=== PATIENT | female | born 1990 | race American Indian/Alaskan Native ===

== ENCOUNTER 2019-06-12 04:05 | Inpatient (IN) | payer MEDICAID ==
[2019-06-12] MEDS ORDERED: TERBUTALINE 1 MG/1 ML INJ IVP PRN (04:28)
[2019-06-12] MEDS ORDERED: AMPICILLIN/NS 2 GM/100 ML 2 GM/100 ML BAG IV ONE (04:28)
[2019-06-12] MEDS ORDERED: MINERAL OIL 30 ML ORAL LIQD PO PRN (04:28)
[2019-06-12] MEDS ORDERED: ePHEDrine SULFATE 50 MG/1 ML INJ IV PRN (04:28)
[2019-06-12] MEDS ORDERED: TERBUTALINE 1 MG/1 ML INJ SUB-Q PRN (04:28)
[2019-06-12] MEDS ORDERED: LIDOCAINE (2%) 20 MG/1 ML VIAL 20 ML MDV INFILTRATI ONE (04:28)
[2019-06-12 04:41] LABS: Hematocrit 29.6 % (30.3-42.9); Hemoglobin 9.2 gm/dl (10.1-14.3); Mean Corpuscular HGB Conc 31 % (30-34); Platelet Count 438 K/mm3 (140-440); Red Blood Count 4.25 M/mm3 (3.65-5.03); Red Cell Distribution Width 19.5 % (13.2-15.2)
[2019-06-12] MEDS ORDERED: OXYTOCIN 20 UNIT/1000ML DRIP 20,000 MILLIUNITS/1,000 ML BAG IV ONE (04:43)
[2019-06-12] MEDS ORDERED: OXYTOCIN 10 UNIT/1 ML INJ ONE (04:43)
[2019-06-12] MEDS ORDERED: OXYTOCIN 20 UNIT/1000ML DRIP 20 UNITS/1,000 ML BAG IV SCH (05:00)
[2019-06-12] MEDS ORDERED: LACTATED RINGERS 1,000 ML IV SCH (05:00)
[2019-06-12 05:21] LABS: Mean Corpuscular Volume 70 fl (79-97)
--- NOTE | 2019-06-12 05:30 | History and Physical Report ---
History of Present Illness Date of examination: 06/12/19 Date of admission: 06/12/19 04:09 Chief complaint: I'm in labor History of present illness: Pt is a 29 year old L4 who presents in active labor with srom and light meconium at 39.6 weeks with EDC 06/13/19. Patient was seen just recently at [facility] after moving from [place] where she did receive some care. Pt did have all of her labs with her. Per the documents, her course was unremarkable. Her GBS is positive. Past History Past Medical History: blood transfusion Past Surgical History: [employer]/uterine surgery Family/Genetic History: none Social history: single - Obstetrical History Expected Date of Delivery: 06/13/19 Actual Gestation: 39 Week(s) 6 Day(s) : 7 Para: 4 Hx # Term Pregnancies: 4 Spontaneous Abortions: 2 Number of Living Children: 4 Medications and Allergies Allergies Allergy/AdvReac Type Severity Reaction Status Date / Time No Known Allergies Allergy Unverified 06/12/19 04:28 Active Meds: Active Medications Acetaminophen/Hydrocodone Bitart ([place] 5/325) 2 each PO Q6H PRN PRN Reason: Pain, Moderate (4-6) Ephedrine Sulfate (Ephedrine Sulfate) 10 mg IV Q2M PRN PRN Reason: Hypotension Oxytocin/Sodium Chloride (Pitocin/Ns 20 Unit/1000ml Drip) 20 units in 1,000 mls @ 125 mls/hr IV DIRECT LANDY Lactated Ringer's (Lactated Ringers) 1,000 mls @ 125 mls/hr IV DIRECT LANDY Ampicillin Sodium (Ampicillin/Ns 2 Gm/100 Ml) 2 gm in 100 mls @ 100 mls/hr IV ONCE ONE; Protocol Stop: 06/12/19 05:27 Ampicillin Sodium (Ampicillin/Ns 1 Gm/50 Ml) 1 gm in 50 mls @ 100 mls/hr IV Q4HR LANDY; Protocol Mineral Oil (Mineral Oil) 30 ml PO QHS PRN PRN Reason: Constipation Terbutaline Sulfate (Brethine) 0.25 mg SUB-Q ONCE PRN PRN Reason: Hyperstimulation/Hypertonicity Terbutaline Sulfate (Brethine) 0.25 mg IVP ONCE PRN PRN Reason: Hyperstimulation/Hypertonicity Review of Systems All systems: negative Constitutional: weight gain Gastrointestinal: abdominal pain Genitourinary: contractions Rectal Exam: deferred Integumentary: deferred - Vital Signs Vital signs: Vital Signs Pulse Pulse Ox 95 H 100 06/12/19 04:28 06/12/19 04:28 Temp Pulse Resp BP Pulse Ox 97.3 F L 88 16 116/54 100 06/12/19 04:30 06/12/19 05:23 06/12/19 04:30 06/12/19 05:01 06/12/19 05:23 - Physical Exam Breasts: Cardiovascular: Regular rate, Normal S1, Normal S2 Lungs: Positive: Clear to auscultation, Normal air movement Abdomen: Positive: normal appearance, soft, normal bowel sounds. Negative: distention, tenderness Genitourinary (Female): Positive: normal external genitalia, normal perenium Vulva: both: normal Vagina: Positive: normal moisture. Negative: discharge Cervix: Negative: lesion, discharge Uterus: Positive: normal size, normal contour Adnexa: both: normal Anus/Rectum: Positive: normal perianal skin, heme negative. Negative: rectal mass, hemorrhoids Extremities: Deep Tendon Reflex Grade: Normal +2 - Obstetrical FHR: auscultation normal Cervical Dilatation: 5 Cervical Effacement Percentage: 80 station: -2 Uterine Contraction Pattern: Regular Uterine Tone Measurement Phase: Contraction Uterine Contraction Intensity: Moderate Results Result Diagrams: 06/12/19 04:00 Abnormal lab results 06/12/19 Range/Units 04:00 WBC 11.3 H (4.5-11.0) K/mm3 Hgb 9.2 L (10.1-14.3) gm/dl Hct 29.6 L (30.3-42.9) % MCV 70 L (79-97) fl MCH 22 L (28-32) pg RDW 19.5 H (13.2-15.2) % All other labs normal. Assessment and Plan IUP at 39.6 in active labor. Admit to L&D. Will try to treat for GBS proplylaxis. Anticipate .
--- NOTE | 2019-06-12 05:40 | Procedure Note ---
OB Delivery Note - Delivery Date of Delivery: 06/12/19 Surgeon: DARIO LOPES Estimated blood loss: 200cc - Vaginal Delivery presentation: vertex Delivery position: OA Intrapartum events: precipitous labor- <3hr Delivery induction: none Delivery monitor: external FHT, external uterine Route of delivery: Delivery placenta: spontaneous Delivery cord: 3 umbilical vessels Episiotomy: none Delivery laceration: none Anesthesia: none Delivery comments: Viable female delivered precipitously over intact perineum. Weight 2129 grams, 6 pounds 7 ounces. at 0449. Placenta delivered spontaneously and intact with 3vc. No lacerations. Excellent hemostasis. pt tolerated procedure well. - Infant A at 1 minute: 8 at 5 minutes: 9 Gender: Female (2129grams)
[2019-06-12] MEDS ORDERED: AMPICILLIN/NS 1 GM/50 ML 1 GM/50 ML BAG IV SCH (08:29)
[2019-06-12] MEDS ORDERED: ACETAMINOPHEN 325 MG TAB PO PRN (08:30)
[2019-06-12] MEDS ORDERED: diphenhydrAMINE 25 MG CAP PO PRN (08:30)
[2019-06-12] MEDS ORDERED: BENZOCAINE/MENTHOL 20/0.5% TOP SPRAY 56 GM TP PRN (08:30)
[2019-06-12] MEDS ORDERED: LANOLIN/ZINC/DIMETHICONE (LANSINOH) 7 GM TP PRN (08:30)
[2019-06-12] MEDS ORDERED: ONDANSETRON 4 MG/2 ML INJ IV PRN (08:30)
[2019-06-12] MEDS ORDERED: PROMETHAZINE 25 MG TAB PO PRN (08:30)
[2019-06-12] MEDS ORDERED: PROMETHAZINE 25 MG RECT SUPP PR PRN (08:30)
[2019-06-12] MEDS ORDERED: WITCH HAZEL/ GLYCERIN PAD TP PRN (08:30)
[2019-06-12] MEDS: HYDROcodone/ACETAMINOPHEN 5-325 MG TAB PO PRN (09:10)
[2019-06-12] MEDS: PRENATAL VIT27-FE FUMARATE-FOLIC ACID VIT TAB PO SCH (10:00)
[2019-06-12] MEDS: DOCUSATE SODIUM 100 MG CAP PO SCH ×2 (10:00→22:03)
[2019-06-12] MEDS: IBUPROFEN 600 MG TAB PO SCH ×2 (13:10→22:03)
[2019-06-12] MEDS ORDERED: MAGNESIUM HYDROXIDE (MOM) ORAL LIQD UDC PO PRN (22:00)
[2019-06-13] MEDS: IBUPROFEN 600 MG TAB PO SCH ×3 (03:15→16:53)
[2019-06-13 05:06] LABS: Hematocrit 22.6 % (30.3-42.9); Hemoglobin 7.1 gm/dl (10.1-14.3)
[2019-06-13] MEDS: HYDROcodone/ACETAMINOPHEN 5-325 MG TAB PO PRN ×2 (06:05→21:18)
[2019-06-13] MEDS: PRENATAL VIT27-FE FUMARATE-FOLIC ACID VIT TAB PO SCH (09:20)
[2019-06-13] MEDS: DOCUSATE SODIUM 100 MG CAP PO SCH ×2 (09:20→21:19)
--- NOTE | 2019-06-13 12:33 | Progress Note ---
Assessment and Plan PPD 1 s/p . Doing well. Plan for discharge on tomorrow Subjective - Subjective Date of service: 06/13/19 Interval history: POD 1 s/p precipitous . Pt was GBS positive and needs to stay 48 hours for observation. She has no complaints. Patient reports: appetite normal, voiding normally, pain well controlled : doing well Objective - Vital Signs Latest vital signs: Vital Signs Temp Pulse Resp BP BP Pulse Ox 06/13/19 08:00 97.5 F L 65 18 124/63 98 06/13/19 05:12 97.8 F 59 L 20 133/95 100 06/13/19 00:10 97.8 F 59 L 20 133/95 100 06/12/19 19:12 75 132/85 06/12/19 16:35 98.2 F 63 18 142/90 06/12/19 13:20 97.9 F 65 18 121/63 Intake and Output 06/12/19 06/13/19 06/13/19 22:59 06:59 14:59 Intake Total 480 480 Balance 480 480 Intake: Oral 480 480 Other: Total, Intake Amount 240 240 # Voids Void 1 1 - Exam Breasts: Present: deferred Cardiovascular: Present: Regular rate, Normal S1, Normal S2 Lungs: Present: Clear to auscultation, Normal air movement Abdomen: Present: normal appearance, soft, normal bowel sounds Vulva: both: normal Uterus: Present: normal, firm Extremities: Present: normal - Labs Labs: Abnormal lab results 06/13/19 Range/Units 03:10 Hgb 7.1 L (10.1-14.3) gm/dl Hct 22.6 L D (30.3-42.9) %
--- NOTE | 2019-06-13 12:44 | Discharge Summary ---
Providers - Providers Date of Admission: 06/12/19 04:09 Date of discharge: 06/14/19 Attending physician: DARIO LOPES Primary care physician: DARIO LOPES Hospitalization Reason for admission: active labor Delivery: Episiotomy: none Other procedures: none Discharge diagnosis: IUP at term delivered baby: female Hospital course: unremarkable Condition at discharge: Good Disposition: DC- TO HOME OR SELFCARE Plan - Discharge Medications Prescriptions: Ferrous Sulfate [Feosol 325 MG tab] 325 mg PO BID #60 tablet Ibuprofen [Motrin 600 MG tab] 600 mg PO Q6H #30 tablet HYDROcodone/APAP 5-325 [[place] 5-325 mg TAB] 2 each PO Q6H PRN #15 tablet PRN Reason: Pain, Moderate (4-6) - Provider Discharge Summary Activity: routine, no sex for 6 weeks, no heavy lifting 4 weeks, no strenuous exercise Diet: routine Instructions: routine Additional instructions: [] Smoking cessation referral if applicable(refer to patient education folder for contact #) [] Refer to [facility] Booklet Call your doctor immediately for: * Fever > 100.5 * Heavy vaginal bleeding ( >1 pad per hour) * Severe persistent headache * Shortness of breath * Reddened, hot, painful area to leg or breast * Drainage or odor from incision. * Keep incision clean and dry at all times and follow doctor's instructions regarding bathing/showering - Follow up plan Follow up: DARIO LOPES MD [Primary Care Provider] - 6 Weeks
[2019-06-14] MEDS: IBUPROFEN 600 MG TAB PO SCH (04:05)
[2019-06-14] MEDS: HYDROcodone/ACETAMINOPHEN 5-325 MG TAB PO PRN (04:06)
[2019-06-14] MEDS: DOCUSATE SODIUM 100 MG CAP PO SCH (09:55)
[2019-06-14] MEDS: PRENATAL VIT27-FE FUMARATE-FOLIC ACID VIT TAB PO SCH (09:55)
[2019-06-14 16:17] VITALS: BP 127/57
== END 2019-06-14 16:30 | disposition home or self-care (01) | DRG 775 ==
LOC: TRG 04:05 → LD 04:09 → OB 08:06
PROVIDERS: ADMIT Obstetrics & Gynecology; ATTEND Obstetrics & Gynecology
PROC: 10E0XZZ Delivery of Products of Conception, External Approach (ICD-10-PCS; principal; 2019-06-12)
DX: O62.3 Precipitate labor (principal); O77.0 Labor and delivery complicated by meconium in amniotic fluid; O99.824 Streptococcus B carrier state complicating childbirth; Z3A.39 39 weeks gestation of pregnancy; Z37.0 Single live birth
CPT/HCPCS: 36415; 85014; 85018; 85027; 86850; 86900; 86901; G0378; J0290; J2590; J7120